=== PATIENT | male | born 1980 | race Caucasian/White ===

== ENCOUNTER 2016-10-03 18:34 | Emergency (ER) | payer MEDICAID ==
[2016-10-03 20:26] VITALS: BP 147/90
== END 2016-10-03 20:27 | disposition home or self-care (01) ==
LOC: ED 18:34
DX: S39.012A Strain of muscle, fascia and tendon of lower back, initial encounter (principal); M46.96 Unspecified inflammatory spondylopathy, lumbar region; X50.9XXA Other and unspecified overexertion or strenuous movements or postures, initial encounter; Y93.89 Activity, other specified; Y99.8 Other external cause status; Y92.89 Other specified places as the place of occurrence of the external cause
CPT/HCPCS: J1885

== ENCOUNTER 2017-01-18 01:56 | Emergency (ER) | payer MEDICAID ==
[~2017-01-18] VITALS: Ht 180.3 cm; Wt 143.6 kg
[2017-01-18 02:56] VITALS: BP 149/97
== END 2017-01-18 02:56 | disposition home or self-care (01) ==
LOC: ED 01:56
DX: M62.830 Muscle spasm of back (principal); Z79.891 Long term (current) use of opiate analgesic

== ENCOUNTER 2017-03-12 22:58 | Emergency (ER) | payer MEDICAID ==
[2017-03-13 01:11] VITALS: BP 140/105
== END 2017-03-13 01:11 | disposition home or self-care (01) ==
LOC: ED 22:58
DX: M62.830 Muscle spasm of back (principal)
CPT/HCPCS: 20552; J2001

== ENCOUNTER 2017-03-30 19:26 | Emergency (ER) | payer SELFPAY ==
[~2017-03-30] VITALS: Ht 180.3 cm; Wt 143.9 kg
[2017-03-30 21:40] VITALS: BP 141/96
== END 2017-03-30 21:40 | disposition home or self-care (01) ==
LOC: ED 19:26
DX: J40 Bronchitis, not specified as acute or chronic (principal); M46.96 Unspecified inflammatory spondylopathy, lumbar region

== ENCOUNTER 2017-11-02 22:27 | Emergency (ER) | payer MEDICAID ==
[~2017-11-02] VITALS: Ht 180.3 cm; Wt 140.6 kg
[2017-11-02 22:39] VITALS: Ht 180.3 cm; Wt 140.6 kg
[2017-11-02 23:48] LABS: PLATELET COUNT 206 x10^3mcL (130-400); RED CELL DISTRIBUTION WIDTH 12.6 % (11.5-14.5)
[2017-11-02 23:56] LABS: CALCIUM 9.7 mg/dL (8.5-10.1); CARBON DIOXIDE 27.6 mmol/L (21-32); CHLORIDE SERUM 106 mmol/L (98-107); CREATININE SERUM 0.8 mg/dL (0.7-1.3); GFR1 > 60 mL/min; GLUCOSE SERUM 111 mg/dL (74-106); POTASSIUM SERUM 4.1 mmol/L (3.5-5.1); SODIUM SERUM 142 mmol/L (136-145)
[2017-11-03 00:05] LABS: ALBUMIN 3.8 g/dL (3.4-5.0); ALKALINE PHOSPHATASE 91 U/L (46-116); ALT/SGPT 51 U/L (16-63); AST/SGOT 24 U/L (15-37); BILIRUBIN TOTAL 0.3 mg/dL (0.20-1.00); TOTAL PROTEIN, SERUM 7.9 g/dL (6.4-8.2)
[2017-11-03 00:20] LABS: AMPHETAMINE QUAL UR NONE DETECTED (See below)
[2017-11-03 01:44] VITALS: BP 149/68
== END 2017-11-03 01:44 | disposition home or self-care (01) ==
LOC: ED 22:27
PROVIDERS: Emergency Medicine
DX: R07.2 Precordial pain (principal); E66.9 Obesity, unspecified; Z68.41 Body mass index [BMI] 40.0-44.9, adult; Z90.49 Acquired absence of other specified parts of digestive tract
CPT/HCPCS: 83880; J1885; Q0092

== ENCOUNTER 2017-12-08 19:16 | Emergency (ER) | payer MEDICAID ==
[~2017-12-08] VITALS: Ht 180.3 cm; Wt 138.3 kg
[2017-12-08 19:22] VITALS: Ht 180.3 cm; Wt 138.3 kg
[2017-12-08 19:59] LABS: BASOPHIL % 0.3 % (0-2); PLATELET COUNT 207 x10^3mcL (130-400); RED CELL DISTRIBUTION WIDTH 12.9 % (11.5-14.5)
[2017-12-08 20:01] LABS: CALCIUM 10.6 mg/dL (8.5-10.1); CARBON DIOXIDE 28.5 mmol/L (21-32); CHLORIDE SERUM 103 mmol/L (98-107); CREATININE SERUM 0.9 mg/dL (0.7-1.3); GFR1 > 60 mL/min; GLUCOSE SERUM 125 mg/dL (74-106); POTASSIUM SERUM 3.2 mmol/L (3.5-5.1); SODIUM SERUM 138 mmol/L (136-145)
[2017-12-08 20:07] LABS: ALBUMIN 4.2 g/dL (3.4-5.0); ALKALINE PHOSPHATASE 80 U/L (46-116); ALT/SGPT 54 U/L (16-63); AST/SGOT 23 U/L (15-37); BILIRUBIN TOTAL 0.62 mg/dL (0.20-1.00); TOTAL PROTEIN, SERUM 8.5 g/dL (6.4-8.2)
[2017-12-08 20:28] VITALS: BP 137/83
== END 2017-12-08 20:56 | disposition home or self-care (01) ==
LOC: ED 19:16
PROVIDERS: Emergency Medicine
DX: S16.1XXA Strain of muscle, fascia and tendon at neck level, initial encounter (principal); E87.6 Hypokalemia; Z90.49 Acquired absence of other specified parts of digestive tract; X58.XXXA Exposure to other specified factors, initial encounter; Y93.89 Activity, other specified; Y92.89 Other specified places as the place of occurrence of the external cause; Y99.8 Other external cause status
CPT/HCPCS: 36415; Q0092

== ENCOUNTER 2018-06-07 17:09 | Emergency (ER) | payer MEDICAID ==
[~2018-06-07] VITALS: Ht 180.3 cm; Wt 140.2 kg
[2018-06-07 17:14] VITALS: Ht 180.3 cm; Wt 140.2 kg
[2018-06-07 17:56] LABS: BASOPHIL % 0.5 % (0-2); PLATELET COUNT 210 x10^3mcL (130-400); RED CELL DISTRIBUTION WIDTH 12.8 % (11.5-14.5)
[2018-06-07 18:10] LABS: CALCIUM 9.5 mg/dL (8.5-10.1); CARBON DIOXIDE 28.8 mmol/L (21-32); CHLORIDE SERUM 104 mmol/L (98-107); CREATININE SERUM 0.9 mg/dL (0.7-1.3); GFR1 > 60 mL/min; GLUCOSE SERUM 104 mg/dL (74-106); POTASSIUM SERUM 3.5 mmol/L (3.5-5.1); SODIUM SERUM 140 mmol/L (136-145)
[2018-06-07 18:14] LABS: ALKALINE PHOSPHATASE 74 U/L (46-116); ALT/SGPT 52 U/L (16-63); AST/SGOT 30 U/L (15-37); BILIRUBIN TOTAL 0.53 mg/dL (0.20-1.00); TOTAL PROTEIN, SERUM 8.2 g/dL (6.4-8.2)
[2018-06-07 18:54] VITALS: BP 159/87
== END 2018-06-07 18:54 | disposition home or self-care (01) ==
LOC: ED 17:09
PROVIDERS: Emergency Medicine
DX: R07.89 Other chest pain (principal); F41.9 Anxiety disorder, unspecified; Z90.89 Acquired absence of other organs; Z87.442 Personal history of urinary calculi; M19.90 Unspecified osteoarthritis, unspecified site
CPT/HCPCS: 36415; J7030; Q0092

== ENCOUNTER 2019-11-02 01:02 | Emergency (ER) | payer MEDICAID ==
[~2019-11-02] VITALS: Ht 180.3 cm; Wt 143.8 kg
[2019-11-02 01:12] VITALS: Ht 180.3 cm; Wt 143.8 kg
[2019-11-02 02:12] LABS: UA SPECIFIC GRAVITY >=1.030 (1.005-1.035); microscopic required? YES; urine erythrocyte 3+ (NEGATIVE)
[2019-11-02 02:15] LABS: BASOPHIL % 0.4 % (0-2); PLATELET COUNT 219 x10^3mcL (130-400); RED CELL DISTRIBUTION WIDTH 13.2 % (11.5-14.5)
[2019-11-02 02:32] LABS: ALBUMIN 3.8 g/dL (3.4-5.0); ALKALINE PHOSPHATASE 71 U/L (46-116); ALT/SGPT 46 U/L (16-63); AST/SGOT 18 U/L (15-37); BILIRUBIN TOTAL 0.34 mg/dL (0.20-1.00); CALCIUM 9.3 mg/dL (8.5-10.1); CARBON DIOXIDE 29.7 mmol/L (21-32); CHLORIDE SERUM 102 mmol/L (98-107); GFR1 > 60 mL/min; GLUCOSE SERUM 98 mg/dL (74-106); LIPASE 87 IU/L (73-393); POTASSIUM SERUM 3.1 mmol/L (3.5-5.1); SODIUM SERUM 139 mmol/L (136-145); TOTAL PROTEIN, SERUM 7.6 g/dL (6.4-8.2)
[2019-11-02 03:35] VITALS: BP 120/67
== END 2019-11-02 03:35 | disposition home or self-care (01) ==
LOC: ED 01:02
PROVIDERS: Emergency Medicine
DX: N20.1 Calculus of ureter (principal); M19.90 Unspecified osteoarthritis, unspecified site; Z87.442 Personal history of urinary calculi; Z90.89 Acquired absence of other organs
CPT/HCPCS: J1885; J2270; J2405; J7030